=== PATIENT | female | born 1980 | race Caucasian/White ===

== ENCOUNTER 2017-10-10 20:13 | Outpatient (CLI) | payer MEDICAID ==
[2017-10-10] MEDS ORDERED: TERBUTALINE 1 ML (21:25)
[2017-10-10] MEDS: LACTATED RINGER'S 1,000 ML IV (21:40)
[2017-10-10] MEDS: TERBUTALINE 1 MG/ML INJ SC (21:40)
[2017-10-10] MEDS: LACTATED RINGER'S 250 ML IV (22:06)
[2017-10-11] MEDS: LACTATED RINGER'S 1,000 ML IV (00:23)
[2017-10-11] MEDS: TERBUTALINE 1 MG/ML INJ SC (00:51)
[2017-10-11] MEDS: HYDROCODONE/APAP (5/325) TAB PO (02:48)
== END 2017-10-11 04:35 | disposition home or self-care (01) ==
LOC: OBT 20:13 → L-D 20:16
DX: O62.9 Abnormality of forces of labor, unspecified (principal); Z3A.36 36 weeks gestation of pregnancy
CPT/HCPCS: 36415; 96360; 96361; 96372